=== PATIENT | male | born 1985 | race Caucasian/White ===

== ENCOUNTER → 2018-12-03 | Outpatient (CLI) | payer BC ==
[~2018-12-03] VITALS: Ht 177.8 cm; Wt 79.4 kg
[2018-12-03 13:02] VITALS: BP 113/64
--- NOTE | 2018-12-03 13:21 | NUR ---
Pain Clinic Assessment: 1. History of Osteoarthritis: History of Rheumatoid Arthritis: 2. Height: 5 ft. 10 in. 177.8 cm. Weight: 175.0 lb. oz. 79.380 kg. Patient's BMI: 25.1 3. Vital Signs: BP: 113/64 Pulse: 73 Resp: 14 Temp: 02 Sat: 99 ECG Mon: 4. Pain Intensity: 4 5. Fall Risk: Dizziness: N Needs help standing or walking: N Fallen in the last 3 months: N Fall risk comments: 6. Patient on Blood Thinner: None 7. History of Hypertension: N 8. Opioid Therapy greater than 6 weeks: N Opiate Contract Signed: 9. Risk Assessment Tool Provided: LOW 10. Functional Assessment Tool: 11. Recreational Drug Use: Never Drug Type: Tobacco Use: Never Smoker Tobacco Type: Amount or Packs/day: How Many Years: Alcohol Use: Yes Frequency: Weekly Quant: 6
--- NOTE | 2018-12-05 16:49 | HPC ---
[facility] [place] [address] PAIN MANAGEMENT CONSULTATION Name: ÓSCAR GUNDERSON Room #: REG ENEDINA Nikky#: [id number] Admission: 12/03/18 Attend Phys: Lashawn Ibarra MD Discharge: Date of : 81 Report #: [id number] THIS REPORT FOR: //name// CC: FAM physician/PCP Felicita Ibarra DATE OF SERVICE: 12/03/2018 CHIEF COMPLAINT: Chronic back pain. HISTORY OF PRESENT ILLNESS: The patient is a 33-year-old gentleman who has been suffering from low back pain for quite a number of years. The patient states he was living in [place] in the past. He has undergone a number of procedures to help with his chronic pain. States that he has undergone dry needling. He has undergone physical therapy, has tried a number of nonsteroidal anti-inflammatory medications, has used a Medrol Dosepak has taken medications, which sound as though they may have been Cymbalta or Neurontin or gabapentin to help with his pain. Overall, he finds that the pain continues to be problematic. He is much less active than he used to be. He used to run as well as lift weights. Because of this chronic problem, He has had to give up these activities. Notes his pain is worse when he is sitting and with doing strenuous exercise. Describes as a constant dull pain in the lower portion of his back. Rates as a 3/10 today. He has not had back surgery. Does not recall any significant trauma to his back. Does have a right shoulder, which is somewhat sore and could be problematic as well. ALLERGIES: No known drug allergies. MEDICATIONS: No current medications other than nonsteroidal anti-inflammatory medications [id number]. PAST MEDICAL HISTORY: Generally unremarkable except for the Chronic back pain. PAST SURGICAL HISTORY: Sinus surgery in 2012, cheek bone surgery in 1999. SOCIAL HISTORY: He is working in [employer] at [employer]. He is working at this juncture. REVIEW OF SYSTEMS: Generally good health, wears glasses, chronic sinus problems, otherwise unremarkable. LABORATORY DATA: MRI of the lumbar spine dated 11/10/2018 1. L2-L3 this remains normal height and hydration. There is a very slight right paracentral juxta-forminal disk bulge in the cause of slight indentation on the thecal space, but no significant stenosis. Subtle increased T2 signal [address] [address] PAIN MANAGEMENT CONSULTATION Name: ÓSCAR GUNDERSON Room #: REG ENEDINA Nikky#: [id number] Admission: 12/03/18 Attend Phys: Lashawn Ibarra MD Discharge: Date of : 81 Report #: [id number] within the disk annulus at this location, suggests a small annular tear. Central canal and foramen are widely patent. The disks maintains normal height and hydration. No bulging is present. The central canal is widely patent. 2. L3-L4, the disk maintains normal height and hydration. The disk bulge, no disk bulge or herniation is present. The central and foramen remain widely patent. 3. L4-L5, the disk remains normal height and hydration. The disk bulge, no disk bulge or herniation is present. The disk and foramen remain widely patent. 5. L5-S1, the disk maintains normal height. No disk bulge or hydration is present. IMPRESSION: L2-L3 slight right paracentral juxta-foraminal disk bulging with slight impression on the thecal sac, but no significant central or foraminal stenosis. A very small annular tear may be present at this location. PAIN CLINIC ASSESSMENT/PQRS: 1. The patient has not been treated for rheumatoid arthritis or osteoarthritis. 2. Height 5 feet 10 inches, weight 175 pounds, BMI is 25. 3. Vital signs: Blood pressure 113/64, pulse 73, respiratory rate 14, room air saturation 99%. 4. Pain intensity 02/04. 5. Fall risk. The patient has not fallen in the last 3 months. 6. Blood thinner. The patient is not on a blood thinning medication. 7. Hypertension. The patient is not being treated for hypertension. 8. Opioids greater than 6 weeks. The patient is not an opioid regimen. 9. Risk assessment tool, low for opioid use. 10. Functional assessment tool 228/70. 11. Recreational drug use. The patient denies use of recreational drugs. 12. Tobacco: The patient has never smoked. 13. Alcohol. The patient drinks about 6 alcoholic beverages weekly. PHYSICAL EXAMINATION: GENERAL: The patient is a well-developed, well-nourished white male. Appears his stated age. He is alert and oriented x 3. Affect is appropriate. Speech is fluent. HEENT: Normocephalic, atraumatic. Extraocular eye muscles intact. Sclerae nonicteric. The patient is wearing glasses. NECK: Without adenopathy or JVD. The patient has some soreness in his right shoulder. Deep tendon reflexes are +1 for the biceps bilaterally. Brachioradialis absent for the triceps. Muscle strength to the upper extremity judged to be 5/5. HEART: Regular rate. S1, S2. LUNGS: Clear to auscultation without rhonchi or rales. ABDOMEN: Nontender. Bowel sounds present. EXTREMITIES: Low back pain with discomfort in the left L3-L4 paraspinous area. Palpation in this area does reproduce a persistent portion of the patient's [facility] [address] [place] [address] PAIN MANAGEMENT CONSULTATION Name: ÓSCAR GUNDERSON Room #: REG ENEDINA Nikky#: [id number] Admission: 12/03/18 Attend Phys: Lashawn Ibarra MD Discharge: Date of : 81 Report #: [id number] pain. Deep tendon reflexes are +1 at the knees bilateral. Ankles +1. Jae's sign is somewhat positive on the right with the right leg, negative on the left. Legs and dependent position do not significantly increase the patient's pain. Anterior and posterior spring tests are negative. Forward bending to 75 degrees cause some increased pain and discomfort and perception of tightness in his legs. Lumbar extension caused some increased discomfort in the lower portion of his back. Left lateral leaning was not very problematic, right lateral rotation cause some increased discomfort in the low back area. IMPRESSION: 1. Myofascial pain L2-L3 spinal area on the left. 2. Chronic pain, low back area. RECOMMENDATIONS: We discussed treatment options with the patient. At this juncture, he is having pain and discomfort in the left L2-L3 paraspinous area. Palpation in this area does reproduce a trigger point. The patient states that this indeed is component of the pain that is causing the most discomfort. We would recommend that the patient undergo a trigger point injection to the affected area. He does remain quite active. He engages in yoga. Has not tried nonsteroidal anti-inflammatory medication, has undergone physical therapy in the past, has had an MRI of the low back area, which shows some disk annulus with a possible annular tear at L2-L3. The patient will return at which time he will then undergo a trigger point injection to the affected area. We would like to thank you for letting us participate in his care. We hope he continues to improve. <ELECTRONICALLY SIGNED> By: Lashawn Ibarra MD 12/05/18 [id number] [id number] [id number] Lashawn Ibarra MD /nt
== END ==
LOC: PAIN 07:15
DX: M54.5 Low back pain (principal); G89.29 Other chronic pain; M79.18 Myalgia, other site; Z79.899 Other long term (current) drug therapy

== ENCOUNTER → 2018-12-19 | Outpatient (CLI) | payer BC ==
[~2018-12-19] VITALS: Ht 177.8 cm; Wt 83.4 kg
--- NOTE | ~2018-12-19 | HPC ---
[facility] [place] [address] PAIN MANAGEMENT CONSULTATION Name: ÓSCAR GUNDERSON Room #: REG ENEDINA MarieAlan#: [id number] Admission: 12/19/18 ������������������ Attend Phys: Lashawn Ibarra MD Discharge: ������������������ Date of : 81 Report #: [id number] THIS REPORT FOR: //name// CC: FAM physician/PCP Felicita Ibarra DATE OF SERVICE: 12/19/2018 CHIEF COMPLAINT: Chronic back pain. HISTORY OF PRESENT ILLNESS: The patient is a 33-year-old gentleman who has been referred to the Pain Clinic because of back pain. He notes that he has had pain in his back for a number of years. He moved to [place] from [place]. He has had a number of procedures to help with his chronic pain. He has undergone dry needling. He has undergone physical therapy. He has tried nonsteroidal anti-inflammatory medications. He has used a Medrol Dosepak. He continued to have pain, which is problematic. He has pain with trigger points in the lower portion of his back. He has returned for a trigger point injection. He has myofascial pain in the L2-L3 area on the left. ALLERGIES: No known drug allergies. CURRENT MEDICATIONS: [id number] nonsteroidal anti-inflammatory medications. PAIN CLINIC ASSESSMENT/PQRS: 1. The patient has not been treated for rheumatoid arthritis or osteoarthritis. 2. Height 5 feet 10 inches, weight was 183 pounds, BMI is 26.4. 3. Vital signs: Blood pressure 117/68, pulse 70, respiratory rate 14, room air saturation 100%. 4. Pain intensity, 10. 5. Fall risk. The patient has not fallen in the last 3 months. 6. Blood thinner. The patient is not on a blood thinning medication. 7. Hypertension. The patient is not being treated for hypertension. 8. Opioids greater than 6 weeks. The patient is not receiving opioid medication on a long-term basis. 9. Risk assessment tool, low for opioid use. 10. Functional assessment, . 11. Recreational drug use. The patient denies use of recreational drugs. 12. Tobacco: The patient denies use of tobacco. 13. Alcohol. The patient drinks alcoholic beverages on occasion. PHYSICAL EXAMINATION: GENERAL: The patient is a well-developed, well-nourished white male. Appears his stated age. He is alert and oriented x 3. His affect is appropriate. [address] [address] PAIN MANAGEMENT CONSULTATION Name: ÓSCAR GUNDERSON Room #: REG CLI [facility]#: [id number] Admission: 12/19/18 ������������������ Attend Phys: Lashawn Ibarra MD Discharge: ������������������ Date of : 81 Report #: [id number] Speech is fluent. HEENT: Normocephalic, atraumatic. Extraocular eye muscles intact. Sclerae nonicteric. Mucous membranes are moist. NECK: Without adenopathy or JVD. The patient has some soreness in his right shoulder. Muscle strength in the upper extremities, judged to be 5/5 for the major muscle groups. HEART: Regular rate. S1, S2. LUNGS: Clear to auscultation without rhonchi or rales. ABDOMEN: Nontender. Bowel sounds present. The patient has some pain and discomfort in the right paraspinous area of approximately L2-L3 today. Palpation in this area does reproduce the patient's discomfort. PROCEDURE NOTE: The patient was placed in the left lateral decubitus position. Palpation in the right paraspinous area with deep palpation was performed. The patient states this did reproduce his discomfort. His trigger point area was sterilely prepped with a chlorhexidine solution. It was allowed to dry. A 25-gauge needle was then advanced into the area of discomfort. The patient states that this did reproduce his discomfort. A total of 10 mL of 0.5% bupivacaine and 40 mg triamcinolone was injected. The patient tolerated the procedure well. There were no complications. There was no bleeding. The patient remained in the Pain Clinic for an appropriate amount of time. Notes that his pain decreased from 4-2 at the time of discharge. He will follow up in the future as needed. The injection was in the area of the latissimus dorsi at the L2-L3 paraspinous area on the right. We would like to thank you for letting us participate in his care. We hope he continues to improve. ��������������������������������������������� ���������������������������������������� By: ��������������������������������������������� 14 0211 Lashawn Ibarra MD /nt
[2018-12-19 08:26] VITALS: BP 117/68
--- NOTE | 2018-12-19 08:52 | NUR ---
Pain Clinic Assessment: 1. History of Osteoarthritis: History of Rheumatoid Arthritis: 2. Height: 5 ft. 10 in. 177.8 cm. Weight: 183.8 lb. oz. 83.371 kg. Patient's BMI: 26.4 3. Vital Signs: BP: 117/68 Pulse: 71 Resp: 14 Temp: 02 Sat: 100 ECG Mon: 4. Pain Intensity: 4 5. Fall Risk: Dizziness: N Needs help standing or walking: N Fallen in the last 3 months: N Fall risk comments: 6. Patient on Blood Thinner: None 7. History of Hypertension: N 8. Opioid Therapy greater than 6 weeks: N Opiate Contract Signed: 9. Risk Assessment Tool Provided: LOW 10. Functional Assessment Tool: 11. Recreational Drug Use: Never Drug Type: Tobacco Use: Never Smoker Tobacco Type: Amount or Packs/day: How Many Years: Alcohol Use: Yes Frequency: Quant:
== END | disposition home or self-care (01) ==
LOC: PAIN 06:53
DX: M79.18 Myalgia, other site (principal); G89.29 Other chronic pain